=== PATIENT | female | born 1970 | race Caucasian/White ===

== ENCOUNTER 2019-07-22 08:04 | Outpatient (CLI) | payer OTHER, MEDICARE, SELFPAY ==
[2019-07-22 08:22] LABS: Hematocrit 42.2 % (35.0-49.0); Hemoglobin 14.3 g/dL (12.0-15.0); Mean Corpuscular HGB Conc 33.9 g/dL (32.0-36.0); Mean Corpuscular Hemoglobin 30.5 pg (27.0-31.0); Mean Platelet Volume 9.8 fl (9.2-11.8); Platelet Count Result 344 K/mm3 (150-420); Red Blood Count 4.69 M/mm3 (4.20-5.40); Red Cell Distribution Width 12.5 % (11.6-14.4); White Blood Count 7.3 K/mm3 (4.8-10.8)
[2019-07-22 08:49] LABS: Hemoglobin A1C 6.6 % (<5.7)
[2019-07-22 09:21] LABS: Alanine Aminotransferase 25 U/L (14-59); Albumin Level 3.7 g/dL (3.4-5.0); Alkaline Phosphatase 87 U/L (46-116); Anion Gap 13.2 mmol/L (7-16); Aspartate Amino Transferase 15 U/L (15-37); Bilirubin,Total 0.2 mg/dL (0.00-1.00); Blood Urea Nitrogen 17 mg/dL (7-18); Calcium 9.2 mg/dL (8.5-10.1); Carbon Dioxide 31 mmol/L (21-32); Chloride 100 mmol/L (98-108); Cholesterol 269 mg/dL (0-200); Estimated Glomerular Filt Rate 60; Glucose 91 mg/dL (70-99); HDL Direct 49 mg/dL (40-60); LDL Cholesterol Calculated 189 mg/dL (<130); Osmolality Calculated 291 mOsm/kg (285-295); Potassium 4.2 mmol/L (3.5-5.1); Sodium 140 mmol/L (136-145); Triglycerides 156 mg/dL (0-150)
[2019-07-24 20:47] LABS: H pylori, Urea Breath NOT DETECTED (NOT DETECTED)
== END 2019-07-22 08:05 | disposition home or self-care (01) ==
PROVIDERS: PCP Family Medicine; Visit Provider Family Medicine
DX: J45.909 Unspecified asthma, uncomplicated (principal); I10 Essential (primary) hypertension; E11.9 Type 2 diabetes mellitus without complications; E78.5 Hyperlipidemia, unspecified; K21.9 Gastro-esophageal reflux disease without esophagitis
CPT/HCPCS: 36415; 80053; 80061; 83013; 83036; 85027

== ENCOUNTER 2020-12-20 13:42 | Outpatient (CLI) | payer OTHER, MEDICARE, SELFPAY ==
--- NOTE | ~2020-12-20 | US_ITS ---
EXAMINATION: US arterial ankle brachial ind DATE: 12/20/2020 14:29 INDICATION: Peripheral vascular disease. Diabetes. Hyperlipidemia. Hypertension. Smoker. TECHNIQUE: Segmental pressures and plethysmographic and Doppler waveforms of the brachial and lower e xtremity arteries were obtained. COMPARISON: None. FINDINGS: Right and left brachial artery pressures of 84 mm Hg and 89 mm Hg, respectively, are concordant (norm al difference <= 30 mmHg). The right ankle-brachial index (LEXY) is 1.20 (normal >= 0.9-1.0). The right great toe-brachial index (TBI) is 0.73 (normal >= 0.65). Arterial Doppler waveforms are triphasic. The left LEXY is 1.11. The left TBI is 0.83. Arterial Doppler waveforms are triphasic. IMPRESSION: Normal examination Reviewed, dictated and finalized at Location A. Reviewed, dictated and finalized at location B. IMPRESSION: Normal examination
--- NOTE | ~2020-12-20 | MM_ITS ---
EXAMINATION: MM screening doc BI w dave HISTORY: Screening TECHNIQUE: Craniocaudal and mediolateral oblique 3-D tomosynthesis images were obtained and synthetic 2-D images were generated. CAD analysis was submitted and interpreted. COMPARISON: 01/13/2013 BREAST PARENCHYMAL COMPOSITION: There are scattered areas of fibroglandular density. FINDINGS: There is no evidence of suspicious mass, calcification, or architectural distortion to sugg est malignancy in either breast. There has been no suspicious interval change. IMPRESSION: 1. No mammographic evidence of malignancy. 2. Recommend routine screening mammography in one year. BI-RADS Category 1: Negative Reviewed, dictated and finalized at location A.
[2020-12-20 14:49] LABS: Hematocrit 31.5 % (35.0-49.0); Hemoglobin 10.3 g/dL (12.0-15.0); Mean Corpuscular HGB Conc 32.7 g/dL (32.0-36.0); Mean Corpuscular Hemoglobin 29.6 pg (27.0-31.0); Mean Corpuscular Volume 90.5 fL (78.0-102.0); Mean Platelet Volume 9.6 fl (9.2-11.8); Platelet Count Result 392 K/mm3 (150-420); Red Blood Count 3.48 M/mm3 (4.20-5.40); Red Cell Distribution Width 13.2 % (11.6-14.4); White Blood Count 9.8 K/mm3 (4.8-10.8)
[2020-12-20 15:42] LABS: Alanine Aminotransferase 28 U/L (14-59); Albumin Level 3.7 g/dL (3.4-5.0); Alkaline Phosphatase 88 U/L (46-116); Anion Gap 11 mmol/L (8-16); Aspartate Amino Transferase 12 U/L (15-37); Bilirubin,Total 0.1 mg/dL (0.00-1.00); Blood Urea Nitrogen 24 mg/dL (7-18); Calcium 8.8 mg/dL (8.5-10.1); Carbon Dioxide 29 mmol/L (21-32); Chloride 101 mmol/L (98-108); Cholesterol 161 mg/dL (0-200); Estimated Glomerular Filt Rate 44; Glucose 97 mg/dL (70-99); HDL Direct 47 mg/dL (40-60); LDL Cholesterol Calculated 87 mg/dL (<130); Osmolality Calculated 296 mOsm/kg (285-295); Potassium 4.1 mmol/L (3.5-5.1); Sodium 141 mmol/L (136-145); Total Protein 6.6 g/dL (6.4-8.2); Triglycerides 137 mg/dL (0-150)
== END 2020-12-20 13:43 | disposition home or self-care (01) ==
LOC: CHSIMG 13:50
PROVIDERS: PCP Family Medicine; Visit Provider Family Medicine
DX: I73.9 Peripheral vascular disease, unspecified (principal); Z12.31 Encounter for screening mammogram for malignant neoplasm of breast; I10 Essential (primary) hypertension; E78.5 Hyperlipidemia, unspecified; Z00.00 Encounter for general adult medical examination without abnormal findings
CPT/HCPCS: 36415; 77063; 77067; 80053; 80061; 85027; 93922

== ENCOUNTER 2021-01-07 08:50 | Outpatient (CLI) | payer OTHER, MEDICARE, SELFPAY ==
--- NOTE | ~2021-01-07 | MR_ITS ---
EXAMINATION: MR lumbar spine wo [facility] EXAM DATE: 01/07/2021 09:29 INDICATION: Low back pain into left hip. Numbness and tingling. TECHNIQUE: Multi-sequential, multiplanar MR images of the lumbar spine were obtained without contrast . Sagittal T1, T2, T2 fat saturation images. Axial T2 weighted images. Comparison is made to prior examination from 08/23/2015. FINDINGS: Mild to moderate disc disease at L4-5 with 4 mm anterolisthesis. There is moderate disc dis ease L5-S1. The vertebral bodies are otherwise aligned. The conus medullaris terminates at the L1 lev el and has normal signal intensity and morphology. There are no suspicious marrow signal abnormalitie s. Paraspinal soft tissue is unremarkable. Small Tarlov cyst. Level by level evaluation: T12-L1: Disc does not extend beyond the endplate margin. Facet arthropathy: Mild. Neural foraminal stenosis: No stenosis. Central canal stenosis: No stenosis. L1-L2: Disc does not extend beyond the endplate margin. Facet arthropathy: Mild. Neural foraminal stenosis: No stenosis. Central canal stenosis: No stenosis. L2-L3: Disc does not extend beyond the endplate margin. Facet arthropathy: Mild to moderate. Neural foraminal stenosis: No stenosis. Central canal stenosis: No stenosis. L3-L4: Disc does not extend beyond the endplate margin. Facet arthropathy: Mild to moderate. Neural foraminal stenosis: No stenosis. Central canal stenosis: No stenosis. L4-L5: There is a mild diffuse disc bulge. Facet arthropathy: Moderate to severe right greater than left. Neural foraminal stenosis: Mild bilateral. Central canal stenosis: Mild. L5-S1: There is a mild diffuse disc bulge. Facet arthropathy: Mild to moderate. Neural foraminal stenosis: Moderate left, mild to moderate right. Central canal stenosis: Mild. The L4-5 grade 1 anterolisthesis and disc disease has developed compared to prior study. Spondylosis at L5-S1 appears essentially unchanged. IMPRESSION: 1. L4-5 grade 1 anterolisthesis, moderate to severe facet arthropathy. 2. Otherwise mild to moderate lumbar spondylosis. 3. Left L5-S1 neural foramina most narrowed on exam. Reviewed, dictated and finalized at location A.
== END 2021-01-07 08:51 | disposition home or self-care (01) ==
LOC: CHSIMG 08:51
PROVIDERS: PCP Family Medicine; Visit Provider Family Medicine
DX: M54.50 Low back pain, unspecified (principal); I73.9 Peripheral vascular disease, unspecified; G95.19 Other vascular myelopathies
CPT/HCPCS: 72148

== ENCOUNTER 2021-02-21 16:04 | Outpatient (RCR) | payer OTHER, MEDICARE, SELFPAY ==
--- NOTE | 2021-02-21 16:45 | PTOPEVAL ---
Thank you for referring Kinza Zaman to [facility].? The patient is scheduled to be seen for therapy? __2__x/week for 12 visits. Please review, sign, date and return this plan of care CARLOS ALBERTO. I agree with and certify that the following plan of care is medically necessary. Referring Physician Date Admitting Provider: Attending Provider: GIOVANNA HARTMAN Referring Provider: *PT Outpatient Evaluation Start: 02/21/21 16:07 Freq: Status: Active Protocol: Document 02/21/21 16:10 TCIO (Rec: 02/21/21 16:43 TICO [id number]) Therapy Assessment Status Assessment Status Assessment Status Evaluation Evaluation Information Problem Diagnosis lumbar foraminal stenosis Onset 01/25/21 Subjective Information Pt. reports she has had low Query Text:As Reported By Patient/ back pain for a long time. Family She has noticed recently that her pain is more intense and her legs aer starting to seize up multiple times a day. She reports that she has not fallen. She states that she takes medication at night to sleep. She reports she is undergoing a nerve conduction test on . She reports having a MRI scan of her back done in December. She reports that her goal for therapy is to have her legs stop seizing. Diagnostic Tests X-Rays For This Problem Yes MRI For This Problem Yes Prior Level of Function Activity Level (Last 3 Months) Occupation health health care coordinator Hand Dominance Left Activity of Daily Living Ability Independent Indoor/Home Mobility Independent Community Mobility Independent Stairs Ability Independent Functional Cognition (Planning, Shopping Independent , Taking Medications) Cooking Yes Cleaning Yes Laundry Yes Shopping Yes Driving Yes Pain Assessment Timing of Pain Assessment Timing of Pain Assessment Pre-Treatment Pain Scale Pain Scale Used Numeric (1 - 10) Self Report Pain Assessment Lower Back Reported Pain Level 8 Pain Description Aching Pain Frequency Chronic,Continuous Lowest Pain Intensity 3 Greatest Pain Intensity 10 Pain Aggravating Factors Prolonged Position,Si
== END 2021-04-11 16:21 | disposition home or self-care (01) ==
LOC: CHSPT 16:04
PROVIDERS: PCP Family Medicine
DX: M25.511 Pain in right shoulder (principal); M48.061 Spinal stenosis, lumbar region without neurogenic claudication
CPT/HCPCS: 97014; 97110; 97140; 97161; G0283

== ENCOUNTER 2022-09-05 15:37 | Outpatient (CLI) | payer OTHER, MEDICARE, SELFPAY ==
[2022-09-05 15:59] LABS: Basophils Absolute Auto 0.03 K/mm3 (0.00-0.10); Basophils Percent Auto 0.4 % (0.0-1.0); Eosinophils Absolute Auto 0.23 K/mm3 (0.02-0.50); Eosinophils Percent Auto 2.9 % (1.0-6.0); Immature Granulocyte Absolute 0.03 K/mm3 (0.00-0.00); Immature Granulocyte Percent A 0.4 % (0.0-0.0); Lymphocytes Absolute Auto 2.29 K/mm3 (1.10-4.50); Lymphocytes Percent Auto 29.3 % (18.0-42.0); Mean Corpuscular HGB Conc 25.7 g/dL (32.0-36.0); Mean Corpuscular Hemoglobin 16.5 pg (27.0-31.0); Mean Corpuscular Volume 64.1 fL (78.0-102.0); Mean Platelet Volume 9.5 fl (9.2-11.8); Monocytes Absolute Auto 0.57 K/mm3 (0.10-0.90); Monocytes Percent Auto 7.3 % (2.0-11.0); Neutrophils Absolute Auto 4.7 K/mm3 (1.7-7.2); Neutrophils Percent Auto 59.7 % (50.0-70.0); Platelet Count Result 436 K/mm3 (150-420); Red Blood Count 2.31 M/mm3 (4.20-5.40); Red Cell Distribution Width 21.4 % (11.6-14.4); White Blood Count 7.8 K/mm3 (4.8-10.8)
[2022-09-05 16:03] LABS: Hematocrit 14.8 % (35.0-49.0); Hemoglobin 3.8 g/dL (12.0-15.0)
[2022-09-05 16:22] LABS: Alanine Aminotransferase 22 U/L (14-59); Albumin Level 3.6 g/dL (3.4-5.0); Alkaline Phosphatase 83 U/L (46-116); Anion Gap 8 mmol/L (8-16); Aspartate Amino Transferase 12 U/L (15-37); Bilirubin,Total 0.1 mg/dL (0.00-1.00); Blood Urea Nitrogen 33 mg/dL (7-18); Calcium 8.9 mg/dL (8.5-10.1); Carbon Dioxide 29 mmol/L (21-32); Chloride 100 mmol/L (98-108); Cholesterol 113 mg/dL (0-200); Estimated Glomerular Filt Rate 29; Glucose 125 mg/dL (70-99); HDL Direct 48 mg/dL (40-60); Iron 6 ug/dL (50-170); LDL Cholesterol Calculated 48 mg/dL (<130); Magnesium 1.9 mg/dL (1.8-2.4); Osmolality Calculated 292 mOsm/kg (285-295); Potassium 4.2 mmol/L (3.5-5.1); Sodium 137 mmol/L (136-145); Total Protein 6.9 g/dL (6.4-8.2); Triglycerides 87 mg/dL (0-150)
[2022-09-05 16:23] LABS: Appearance Urine Clear (Clear); Bilirubin Urine Negative (Negative); Blood Urine Negative (Negative); Color Urine Light Yellow (Yellow); Glucose Urine UA Negative (Negative); Ketones Urine Negative (Negative); Leukocyte Esterase Ur Negative LEU/UL (Negative); Nitrate Urine Negative (Negative); Protein Urine Negative (Negative); Specific Grav Ur <= 1.005 (1.010-1.020); Urobilinogen Urine 0.2 mg/dL (0.2-1.0)
[2022-09-05 16:33] LABS: Hemoglobin A1C < 4.7 % (<5.7)
[2022-09-05 16:38] LABS: Add Urine Microscopic? NO
[2022-09-09 06:43] LABS: Vitamin D 25 Hydroxy 59 ng/mL (30-100)
== END 2022-09-05 15:38 | disposition home or self-care (01) ==
LOC: CHSLAB 15:40
PROVIDERS: PCP Nurse Practitioner Family; Visit Provider Nurse Practitioner Family
DX: E11.9 Type 2 diabetes mellitus without complications (principal); R42 Dizziness and giddiness; E78.5 Hyperlipidemia, unspecified; I10 Essential (primary) hypertension; Z79.899 Other long term (current) drug therapy; Z87.898 Personal history of other specified conditions
CPT/HCPCS: 36415; 80053; 80061; 81003; 82306; 83036; 83540; 83735; 85025

== ENCOUNTER 2022-09-05 16:13 | Observation (INO) | payer OTHER, MEDICARE, SELFPAY ==
[2022-09-05] VITALS (9 sets, daily range): BP systolic 102–113; BP diastolic 44–65; PULSE 76–103; RESP 16–20; TEMP 35.9–36.8; O2SAT 94–100; BMI 32.3
--- NOTE | ~2022-09-05 | XR_ITS ---
EXAMINATION: XR chest 1V portable Exam Date/Time: 09/05/2022 18:03 CDT HISTORY: sob ON EXERTION/anemia Comparison: 03/03/2015. RESULT: Lines, tubes, and devices: None. Lungs and pleura: Clear. Cardiomediastinal silhouette: Stable. Small hiatal hernia. Other: No acute osseous or upper abdominal finding. IMPRESSION: No acute cardiopulmonary process. Reviewed, dictated and finalized at location K.
[2022-09-05 16:48] LABS: Basophils Absolute Auto 0.02 K/mm3 (0.00-0.10); Basophils Percent Auto 0.3 % (0.0-1.0); Eosinophils Absolute Auto 0.19 K/mm3 (0.02-0.50); Eosinophils Percent Auto 2.6 % (1.0-6.0); Immature Granulocyte Absolute 0.02 K/mm3 (0.00-0.00); Immature Granulocyte Percent A 0.3 % (0.0-0.0); Lymphocytes Absolute Auto 2.23 K/mm3 (1.10-4.50); Lymphocytes Percent Auto 30.7 % (18.0-42.0); Mean Corpuscular HGB Conc 26.2 g/dL (32.0-36.0); Mean Corpuscular Volume 64.7 fL (78.0-102.0); Mean Platelet Volume 9.9 fl (9.2-11.8); Monocytes Absolute Auto 0.52 K/mm3 (0.10-0.90); Monocytes Percent Auto 7.2 % (2.0-11.0); Neutrophils Absolute Auto 4.3 K/mm3 (1.7-7.2); Neutrophils Percent Auto 58.9 % (50.0-70.0); Platelet Count Result 175 K/mm3 (150-420); Red Blood Count 2.24 M/mm3 (4.20-5.40); Red Cell Distribution Width 21.2 % (11.6-14.4); White Blood Count 7.3 K/mm3 (4.8-10.8)
[2022-09-05 16:53] LABS: Hematocrit 14.5 % (35.0-49.0); Hemoglobin 3.8 g/dL (12.0-15.0)
[2022-09-05 17:02] LABS: INR 0.9
[2022-09-05 17:03] LABS: Partial Thromboplastin Time > 20.0 SEC (23.90-30.70)
[2022-09-05 17:05] LABS: Alanine Aminotransferase 11 U/L (14-59); Albumin Level 3.5 g/dL (3.4-5.0); Alkaline Phosphatase 75 U/L (46-116); Anion Gap 9 mmol/L (8-16); Aspartate Amino Transferase 21 U/L (15-37); Blood Urea Nitrogen 33 mg/dL (7-18); Calcium 8.8 mg/dL (8.5-10.1); Carbon Dioxide 27 mmol/L (21-32); Chloride 101 mmol/L (98-108); Estimated CRCL calculation 37 ml/min; Estimated Glomerular Filt Rate 30; Glucose 97 mg/dL (70-99); Osmolality Calculated 291 mOsm/kg (285-295); Potassium 4.1 mmol/L (3.5-5.1); Sodium 137 mmol/L (136-145); Total Protein 7.1 g/dL (6.4-8.2)
--- NOTE | 2022-09-05 17:10 | ECG_ITS ---
Measurements Intervals [place] Rate: 78 P: 53 CT: 155 QRS: 43 QRSD: 85 T: 40 QT: 355 QTc: 405 Interpretive Statements SINUS RHYTHM NORMAL ELECTROCARDIOGRAM NO PREVIOUS ECG AVAILABLE FOR COMPARISON Electronically Signed On 09-07-2022 17:28:08 CDT by Kaveh Dodd M.D.
--- NOTE | 2022-09-05 17:11 | ED.GENADULT ---
HPI - General Adult General Chief complaint: Recheck/Abnormal Lab/Rx Stated complaint: low hemoglobin Time Seen by Provider: 09/05/22 17:11 Source: patient Mode of arrival: ambulatory Limitations: no limitations History of Present Illness HPI narrative: patient is here from an outpatient clinic due to dizziness. Patient was having some blood work done as an outpatient and was found to have a hemoglobin in the level of 3. Patient was sent to the emergency room for further evaluation. Patient has not been feeling well for the past 3 weeks. No prior bleeding from any site or recent injury. She does have a history of anemia but not blood transfusions. No pain. Related Data Home Medications Medication Instructions Recorded Confirmed brimonidine 0.1 % eye drops 1 drop ophthalmic (eye) Q8H 07/20/19 09/05/22 (Alphagan P) trazodone 50 mg tablet 100 mg PO HS PRN Insomnia 07/20/19 09/05/22 albuterol sulfate 90 mcg/actuation 1 inh inhalation Q4H 09/05/22 09/05/22 aerosol inhaler atorvastatin 40 mg tablet 40 mg PO DAILY 09/05/22 09/05/22 ibuprofen 800 mg tablet 800 mg PO TID 09/05/22 09/05/22 lisinopril 20 1 tablet PO DAILY 09/05/22 09/05/22 mg-hydrochlorothiazide 25 mg tablet metformin 500 mg tablet 500 mg PO BID 09/05/22 09/05/22 omeprazole 40 mg capsule,delayed 40 mg PO DAILY 09/05/22 09/05/22 release venlafaxine 150 mg 150 mg PO DAILY 09/05/22 09/05/22 capsule,extended release 24 hr zafirlukast 20 mg tablet 20 mg PO BID 09/05/22 09/05/22 Allergies Allergy/AdvReac Type Severity Reaction Status Date / Time ranitidine Allergy Severe LIPS SWELL Verified 09/05/22 16:23 Penicillins Allergy Unknown Unknown Verified 09/05/22 16:23 bupropion [From Wellbutrin] Allergy Hives Verified 09/05/22 16:23 Review of Systems Review of Systems: Dizziness and otherwise 10 point review of systems is negative. PMFSH Past Medical History Medical History (Updated 09/05/22 @ 18:31 by Elmer Jeffery MD) Asthma Cigarette nicotine dependence COPD (chronic obstructive pulmonary disease) Depression DM2 (diabetes mellitus, type 2) NADINE (generalized anxiety disorder) GERD (gastroesophageal reflux disease) Hyperlipidemia Hypertension Overweight Surgical History Surgical History History of cholecystectomy 1993 History of hysterectomy 2007 Family History Family History Other Diabetes mellitus Family history of arthritis Family history of cardiovascular disease Hypertension Social History Social History Smoking packs per day: 1 Smoking cigarettes per day: 20.0 Years smoked: 40 Smoking pack-years: 40.00 Smoking status: Current every day smoker Tobacco type: cigarettes Alcohol intake: current Lack of Transportation: No Lack of Food: Never True Current Housing: I Have Housing Concerned About Future Housing: No Difficulty Paying Gas/Electric Bills: No Difficulty Paying for Meds: No Currently Unemployed: No Education: High School Diploma/GED Difficulty w/ Childcare or Family Care: No Living arrangements: with family Additional living arrangements comments: Lives with her boyfriend. 2 Children. Occupation/Education: unemployed Exam Const: General: healthy appearing Other: pale HENMT: Head: normal to inspection Eyes: Other: pale conjunctiva bilaterally Chest: Chest palpation & inspection: normal inspection of the chest Resp: Effort & Inspection: normal respiratory effort Cardio: Rate: regular rate Rhythm: regular rhythm GI: Inspection: non-distended GI Palp: Yes Soft to palpation Auscultation: normal bowel sounds Rectal Exam: normal sphincter tone, No Abnormal stool present and No hemorrhoids : General: Yes bladder normal to palpation Back/Spine/Pelvis: Back: no CVA tendern
[2022-09-05 17:16] LABS: Occult Blood Negative (Negative)
[2022-09-05 17:23] LABS: Bilirubin,Total 0.1 mg/dL (0.00-1.00)
[2022-09-05] MEDS: SODIUM CHLORIDE 0.9% IV 500 ML 30 ML (17:49)
--- NOTE | 2022-09-05 19:21 | PC.NURSE ---
1900 2nd iv started 20g to left FA blood switched to this site
--- NOTE | 2022-09-05 19:30 | PC.NURSE ---
Patient admitted to room 208B from ED. Ambulated from stretcher to bed independently with steady gait. A&Ox4. Resp even and unlabored. Blood transfusion continues from ED to IV site in LFA without difficulty. Denies pain and SOB. Call light in reach. No distress noted.
[2022-09-05 19:57] LABS: Ferritin 2 ng/mL (8-252); Iron 6 ug/dL (50-170); Percent Iron Saturation 1 % (12-57); Vitamin B12 554 pg/mL (193-986)
[2022-09-05 20:05] LABS: Folic Acid > 20.0 ng/mL (8.6->20)
--- NOTE | 2022-09-05 20:18 | ADMGEN ---
This patient, Kinza Zaman, was admitted to 2nd Floor Room 208-1. Patient/family oriented to hospital policies and general routines including ID bracelet, bed and alarms, visiting hours, pain management, procedures, bathroom and other care routines, personal items, smoking policy, room service/diet, and visiting hours. Information on how to activate the Rapid Response Team has been discussed. Patient/Family are encouraged to report perceived risks to care and to ask questions if they do not understand what they are told or what they should do.
--- NOTE | 2022-09-05 20:20 | PC.NURSE ---
1st blood transfusion ended. Patient tolerated well. No distress noted. Call light in reach.
[2022-09-05] MEDS: ALBUTEROL SULFATE (*SP) INHALER 1 PUFF INHALATION (21:08)
[2022-09-05] MEDS: BRIMONIDINE TARTRATE 0.1% 5 ML OPHTH DROPS 1 DROP EACH EYE (21:08)
[2022-09-05 22:16] LABS: Glucose Point of Care 99 mg/dl (65-105)
--- NOTE | 2022-09-05 22:50 | PC.NURSE ---
2nd blood transfusion started to IV in LFA. Flushes with ease. Patient denies pain/complaints/needs @ this time. No distress noted. Call light in reach.
[2022-09-06] VITALS (17 sets, daily range): BP systolic 102–120; BP diastolic 54–66; PULSE 58–82; RESP 16–18; TEMP 35.8–36.6; O2SAT 94–97
--- NOTE | 2022-09-06 00:50 | PC.NURSE ---
2nd blood transfusion finished infusing. NS infusing @ 30ml/hr as ordered. Patient tolerated transfusion well. Patient sleeping @ this time. No distress noted. Call light in reach.
[2022-09-06 05:12] LABS: Basophils Absolute Auto 0.04 K/mm3 (0.00-0.10); Basophils Percent Auto 0.6 % (0.0-1.0); Eosinophils Absolute Auto 0.22 K/mm3 (0.02-0.50); Immature Granulocyte Absolute 0.02 K/mm3 (0.00-0.00); Immature Granulocyte Percent A 0.3 % (0.0-0.0); Lymphocytes Percent Auto 24.8 % (18.0-42.0); Mean Corpuscular HGB Conc 28.6 g/dL (32.0-36.0); Mean Corpuscular Hemoglobin 20.2 pg (27.0-31.0); Mean Corpuscular Volume 70.5 fL (78.0-102.0); Mean Platelet Volume 8.8 fl (9.2-11.8); Monocytes Absolute Auto 0.54 K/mm3 (0.10-0.90); Monocytes Percent Auto 7.4 % (2.0-11.0); Neutrophils Absolute Auto 4.7 K/mm3 (1.7-7.2); Neutrophils Percent Auto 63.9 % (50.0-70.0); Nucleated Red Blood Cells Absolute Auto 0.02 K/mm3 (0.00-0.00); Nucleated Red Blood Cells Perc 0.3 % (0-0.0); Platelet Count Result 331 K/mm3 (150-420); Red Blood Count 3.12 M/mm3 (4.20-5.40); Red Cell Distribution Width 23.7 % (11.6-14.4); White Blood Count 7.3 K/mm3 (4.8-10.8)
[2022-09-06 05:15] LABS: Hemoglobin 6.3 g/dL (12.0-15.0)
[2022-09-06 05:27] LABS: Alanine Aminotransferase 20 U/L (14-59); Albumin Level 3.2 g/dL (3.4-5.0); Alkaline Phosphatase 74 U/L (46-116); Anion Gap 7 mmol/L (8-16); Aspartate Amino Transferase 16 U/L (15-37); Bilirubin,Total 0.2 mg/dL (0.00-1.00); Blood Urea Nitrogen 24 mg/dL (7-18); Calcium 8.6 mg/dL (8.5-10.1); Carbon Dioxide 29 mmol/L (21-32); Chloride 104 mmol/L (98-108); Estimated CRCL calculation 55 ml/min; Estimated Glomerular Filt Rate 49; Glucose 105 mg/dL (70-99); Magnesium 2.1 mg/dL (1.8-2.4); Osmolality Calculated 294 mOsm/kg (285-295); Potassium 4.3 mmol/L (3.5-5.1); Sodium 140 mmol/L (136-145); Total Protein 6.5 g/dL (6.4-8.2)
--- NOTE | 2022-09-06 05:47 | PC.NURSE ---
Notified Nancy Jara NP of pt's low hgb of 6.3; New orders received to start 3rd unit of blood.
[2022-09-06] MEDS: BRIMONIDINE TARTRATE 0.1% 5 ML OPHTH DROPS 1 DROP EACH EYE ×2 (05:50→21:43)
--- NOTE | 2022-09-06 06:00 | PM.IMHP ---
H&P: HPI History of Present Illness Date/Time: 09/06/22 06:17 Chief Complaint: abnormal labs Narrative: Patient is a 51 year old female with a past medical history of HTN, COPD, DM2 who presented to the ED from urgent care for abnormal labs.Patient stated that she was getting lightheaded and dizzy along with headaches for over a month. She stated that symptoms worsened over the last week or so. She stated that she was so weak that she can hold her head up or keep her eyes open. she stated that she decided to make a doctor's appointment and decided to do blood work as she has not had blood work done in a while. She went to the urgent care to get the blood work done and they called her and told her come back to the hospital as her hemoglobin was low. In the ED hemoglobin was 3.8. She did state that the dizziness was worse whenever she stood or change positions fast. she stated that she has also been having shortness of breath and the more active that she has been them or shortness of breath she would also has be. She does have a cough however she stated that she does smoke but her cough has no significant changes and she denies any sputum changes or consistency. She did state that she is doing a lot ice lately. She stated that that has been more recent and that she cannot help it she has to have the ice. She stated she eats about 2-3 large cups of ice today. She also stated that she was on iron pills at 1 time however she stated that it leaves of bad metallic taste in her mouth that she was unable to tolerate it. She denies any bloody stools, hematemesis, hematuria or any traumatic bleeding. Chest x-ray was performed in the ED and showed no acute cardiopulmonary abnormality. Patient was given 1 unit of blood in the ED and has received 3 total since admission. Hemoglobin hematocrit this morning was 6.3/22.0. Dizziness has resolved. Patient denies any further symptomatology and has been able to get around the room well. She does have a family history of anemia as her mom also had PICA. Currently she denies any chest pain, nausea, vomiting, diarrhea, constipation, abdominal pain, urgency /frequency/ pain /burning with urination, urinary retention. Patient is being admitted to the hospitalist service under observation Review of Systems Review of Systems: 12 systems reviewed and are negative unless noted in the HPI All systems reviewed & are unremarkable except as noted in HPI and below PMFSH Past Medical History Medical History (Updated 09/06/22 @ 07:28 by NICK Jolly) Anemia Cigarette nicotine dependence Claudication COPD (chronic obstructive pulmonary disease) Depression DM2 (diabetes mellitus, type 2) NADINE (generalized anxiety disorder) GERD (gastroesophageal reflux disease) Healthcare maintenance Hyperlipidemia Hypertension Neurogenic claudication Overweight Surgical History Surgical History History of cholecystectomy 1992 History of hysterectomy 2006 Family History Family History (Updated 09/06/22 @ 07:10 by NICK Jolly) Mother Diabetes mellitus Family history of arthritis Acute myocardial infarction Heart disease Hypertension Congestive heart failure CAD (coronary artery disease) Father Diabetes mellitus Cerebrovascular accident Family history of arthritis Other Family history of cardiovascular disease Social History Social History (Updated 09/06/22 @ 07:11 by NICK Jolly) Social History: patient lives with her boyfriend Jovanny who will be her surrogate if she is unable to make her own decisions. Patient does have 2 kids and she also stated that she wishes to be a full code at this time. Smoking packs per day: 1 Smoking cigarettes per day: 20.0 Years smoked: 35 Smoking pack-years: 35.00 Smoking status: Current every day smoker Tobacco type: cigarettes Second hand tobacco smoke exposure: Ye
[2022-09-06] MEDS: ATORVASTATIN 40 MG TABLET PO (08:33)
[2022-09-06] MEDS: FERROUS SULFATE 324 MG TABLET PO ×2 (08:33→16:43)
[2022-09-06] MEDS: VENLAFAXINE HCL XR 75 MG CAP.ER.24H 150 MG PO (08:33)
[2022-09-06] MEDS: PANTOPRAZOLE 40 MG TABLET PO ×2 (08:34→20:23)
[2022-09-06] MEDS: FUROSEMIDE INJ 40 MG/4 ML VIAL IV PUSH (08:34)
[2022-09-06] MEDS: SODIUM CHLORIDE 0.9% IV 250 ML 30 ML (08:40)
[2022-09-06] MEDS: IRON SUCROSE COMPLEX 500 MG in SODIUM CHLORIDE 0.9% IV 250 ML 78.57 MG IVPB (09:21)
--- NOTE | 2022-09-06 11:22 | PC.NURSE ---
0715 blood starts @100ml/hr. tolerates well. 0735 blood titrates up to 125ml/hr. tolerates well. 0800 blood titrates up to 150ml/hr. tolerates well. 0950 blood done and ns runs to clear tubing.
[2022-09-06 11:35] LABS: Glucose Point of Care 102 mg/dl (65-105)
[2022-09-06 11:39] LABS: Glucose Point of Care 106 mg/dl (65-105)
--- NOTE | 2022-09-06 13:31 | PC.NURSE ---
1030 blood started @ 100ml/hr. 1040 blood titrated to 125ml/hr. tolerating well. 1115 blood up to 150ml/hr. tolerating well. 1300 blood finished. ns clearing tubing.
--- NOTE | 2022-09-06 13:44 | PC.NURSE ---
patient c/o of swelling in caty feet/ hands and general all feeling. claims she feels like she could burst. c/o general all over aches does not like ordered meds. request motrin. 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 hands and feet look swollen. caty pedal edema1-2+
[2022-09-06 14:16] LABS: Hematocrit 38.9 % (35.0-49.0)
[2022-09-06] MEDS: IBUPROFEN 400 MG TABLET 800 MG PO (14:21)
[2022-09-06 16:53] LABS: Glucose Point of Care 177 mg/dl (65-105)
[2022-09-06] MEDS: traZODone HCL 50 MG TABLET 100 MG PO (20:23)
[2022-09-06 20:29] LABS: Glucose Point of Care 94 mg/dl (65-105)
[2022-09-07] VITALS: BP 99/57; PULSE 68; PULSE 71; RESP 16; TEMP 36; O2SAT 93
[2022-09-07 04:00] VITALS: PULSE 68
[2022-09-07 05:24] LABS: Hematocrit 33.6 % (35.0-49.0); Hemoglobin 10.4 g/dL (12.0-15.0); Mean Corpuscular Hemoglobin 22.8 pg (27.0-31.0); Mean Corpuscular Volume 73.5 fL (78.0-102.0); Platelet Count Result 365 K/mm3 (150-420); Red Blood Count 4.57 M/mm3 (4.20-5.40); Red Cell Distribution Width 23.1 % (11.6-14.4); White Blood Count 10.9 K/mm3 (4.8-10.8)
[2022-09-07 05:41] LABS: Alanine Aminotransferase 22 U/L (14-59); Albumin Level 3.2 g/dL (3.4-5.0); Alkaline Phosphatase 93 U/L (46-116); Anion Gap 8 mmol/L (8-16); Aspartate Amino Transferase 15 U/L (15-37); Bilirubin,Total 0.2 mg/dL (0.00-1.00); Blood Urea Nitrogen 17 mg/dL (7-18); Calcium 8.8 mg/dL (8.5-10.1); Carbon Dioxide 30 mmol/L (21-32); Chloride 105 mmol/L (98-108); Estimated CRCL calculation 64 ml/min; Estimated Glomerular Filt Rate 59; Glucose 111 mg/dL (70-99); Osmolality Calculated 298 mOsm/kg (285-295); Potassium 3.9 mmol/L (3.5-5.1); Sodium 143 mmol/L (136-145); Total Protein 6.8 g/dL (6.4-8.2)
[2022-09-07] MEDS: BRIMONIDINE TARTRATE 0.1% 5 ML OPHTH DROPS 1 DROP EACH EYE (05:58)
[2022-09-07 08:00] VITALS: BP 124/72; PULSE 74; RESP 16; TEMP 36.6; O2SAT 96
[2022-09-07 08:15] LABS: Glucose Point of Care 108 mg/dl (65-105)
[2022-09-07] MEDS: ATORVASTATIN 40 MG TABLET PO (08:35)
[2022-09-07] MEDS: PANTOPRAZOLE 40 MG TABLET PO (08:35)
[2022-09-07] MEDS: VENLAFAXINE HCL XR 75 MG CAP.ER.24H 150 MG PO (08:35)
[2022-09-07] MEDS: FERROUS SULFATE 324 MG TABLET PO (08:36)
--- NOTE | 2022-09-07 09:01 | PM.DS ---
DS: Admitting Diagnosis Discharge Date 1970 Admitting Diagnosis anemia DS: Discharge Diagnosis Discharge Diagnosis Plan anemia DS: Summary Hospital Course Reason for hospitalization: anemia, hypotension, tachycardia, acute kidney injury Hospital Course: this is a 52-year-old female presented to the emergency room with abnormal labs of a hemoglobin of 3.8 patient was having some dizziness inability to eat and was eating ice. Patient is normally on iron but has not been able to take consist in the the metallic taste in her mouth patient's guaiac was negative patient received 4 units of blood and current hemoglobin is 10.7. Patient denies any nausea vomiting and/or diarrhea very anxious to go home as today is her birthday. Patient currently denies any dizziness. Physics plane in great detail that patient is going to need a GI consult which she needs follow-up with a stewarding supervisor or a GI doctor patient states that she is aware and she artery has an appointment that is already set up for next week as she knew that anemia was getting worse. Patient also is being seen and followed by Dr. Atilio lopez and states she will take her iron pills. Another iron study has been sent off on her patient continues to deny any blood noted in her urine no coughing up blood and no excessive menstruation currently vitals and labs are stable blood pressure is 124/72, pulse is 74, respirations 16, temp is 97.8?, O2 sats 96% on room air, potassium is 4.6, sodium 139, BUN 20, creatinine 0.95, glucose 102, RBCs 4.24, WBC 7.7, hemoglobin is 10.7, hemoccult is 34.4%, platelets is 390 no signs and symptoms of bleeding patient is stable for discharge at this time ended continue or keep all her already set up appointments and follow up with Dr. Washington Time Spent with Patient Time attestation: Total time spent providing and/or coordinating discharge services: Exam Narrative: General: well-nourished, well-appearing 51-year-old female, laying in bed, comfortable, NARD Neuro: awake, alert and oriented x4, speech clear, no focal neuro deficits noted HEENMT: normocephalic, atraumatic, EOMI, sclerae anicteric, moist oral mucosa Respiratory: Wheezes and rhonchi to auscultation bilaterally without crackles, nonlabored breathing, dry cough present Cardio: regular rate, regular rhythm with S1-S2 Abdomen: nondistended, normoactive bowel sounds, soft, nontender to palpation Extremities: no edema, erythema, or tenderness to palpation, DP pulses 2+ bilaterally Skin: no rashes or lesions, warm and dry Psych: appropriate mood and affect, judgment and insight intact DS: Data Data Completed and Pending Labs on day of discharge: Labs from last 24 hours 09/07/22 09/07/22 09/06/22 08:13 05:19 20:28 WBC 10.9 H RBC 4.57 Hgb 10.4 L Hct 33.6 L MCV 73.5 L MCH 22.8 L MCHC 31.0 L RDW 23.1 H Plt Count 365 MPV 9.0 L Sodium 143 Potassium 3.9 Chloride 105 Carbon Dioxide 30 Anion Gap 8 BUN 17 Creatinine 0.98 Estim Creat Clear Calc 64 Estimated GFR 59 Glucose 111 H POC Capillary Glucose 108 H 94 Calculated Osmolality 298 H Calcium 8.8 Magnesium 2.0 Total Bilirubin 0.2 AST 15 ALT 22 Alkaline Phosphatase 93 Total Protein 6.8 Albumin 3.2 L Vitamin D 25-Hydroxy Blood Type Antibody Screen Crossmatch 09/06/22 09/06/22 09/06/22 16:47 14:11 11:30 WBC RBC Hgb 12.0 Hct 38.9 MCV MCH MCHC RDW Plt Count MPV Sodium Potassium Chloride Carbon Dioxide Anion Gap BUN Creatinine Estim Creat Clear Calc Estimated GFR Glucose POC Capillary Glucose 177 H 106 H Calculated Osmolality Calcium Magnesium Total Bilirubin AST ALT Alkaline Phosphatase Total Protein Albumin Vitamin D 25-Hydroxy Blood Type Antibody Screen Crossmatch 09/06/22 09/06/22
--- NOTE | 2022-09-07 11:16 | PC.NURSE ---
0959 patient up in room. dressed and ready to go. iv out and drg applied. dc orders went over. verbalizes an understanding. has own auto in parking lot. amb on her own out. denies a wc ride.
[2022-09-09 06:43] LABS: Vitamin D 25 Hydroxy 56 ng/mL (30-100)
[2022-09-10 07:02] LABS: Transferrin 406 mg/dL (188-341)
--- NOTE | 2022-09-17 15:17 | PC.NURSE ---
Pt states she received and understood her discharge instructions. Pt states they were awesome, they finally found the problem and saved my life. I feel 2000 times better now.
== END 2022-09-07 09:55 | disposition home or self-care (01) ==
LOC: CHSED 18:31 → CHS2ND 19:11
PROVIDERS: Nurse Practitioner; Admitting Provider Internal Medicine; Emergency Provider Emergency Medicine; PCP Family Medicine; Visit Provider Internal Medicine
DX: D64.9 Anemia, unspecified (principal); R42 Dizziness and giddiness; N17.9 Acute kidney failure, unspecified; J44.9 Chronic obstructive pulmonary disease, unspecified; E11.9 Type 2 diabetes mellitus without complications; E78.5 Hyperlipidemia, unspecified; K21.9 Gastro-esophageal reflux disease without esophagitis; I10 Essential (primary) hypertension; F41.1 Generalized anxiety disorder; F32.A Depression, unspecified; F17.210 Nicotine dependence, cigarettes, uncomplicated; Z79.899 Other long term (current) drug therapy
CPT/HCPCS: 36415; 36430; 71045; 80053; 82272; 82306; 82607; 82728; 82746; 82948; 83540; 83550; 83735; 84443; 84466; 85014; 85018; 85025; 85027; 85610; 85730; 86850; 86900; 86901; 86920; 93005; 96365; 96366; 96375; 99285; A9270; G0378; J1756; J1940; J7040; J7050; P9016

== ENCOUNTER 2022-09-13 13:33 | Outpatient (CLI) | payer OTHER, MEDICARE, SELFPAY ==
[2022-09-13 13:56] LABS: Basophils Absolute Auto 0.07 K/mm3 (0.00-0.10); Basophils Percent Auto 0.8 % (0.0-1.0); Eosinophils Absolute Auto 0.33 K/mm3 (0.02-0.50); Eosinophils Percent Auto 3.7 % (1.0-6.0); Hematocrit 32.4 % (35.0-49.0); Hemoglobin 9.9 g/dL (12.0-15.0); Immature Granulocyte Absolute 0.04 K/mm3 (0.00-0.00); Immature Granulocyte Percent A 0.4 % (0.0-0.0); Lymphocytes Percent Auto 21.1 % (18.0-42.0); Mean Corpuscular HGB Conc 30.6 g/dL (32.0-36.0); Mean Corpuscular Hemoglobin 24.3 pg (27.0-31.0); Mean Corpuscular Volume 79.6 fL (78.0-102.0); Mean Platelet Volume 9.7 fl (9.2-11.8); Monocytes Percent Auto 8.9 % (2.0-11.0); Neutrophils Absolute Auto 5.9 K/mm3 (1.7-7.2); Neutrophils Percent Auto 65.1 % (50.0-70.0); Platelet Count Result 340 K/mm3 (150-420); Red Blood Count 4.07 M/mm3 (4.20-5.40); Red Cell Distribution Width 28.5 % (11.6-14.4)
[2022-09-13 14:13] LABS: Alanine Aminotransferase 30 U/L (14-59); Albumin Level 3.3 g/dL (3.4-5.0); Alkaline Phosphatase 91 U/L (46-116); Anion Gap 8 mmol/L (8-16); Aspartate Amino Transferase 20 U/L (15-37); Bilirubin,Total 0.1 mg/dL (0.00-1.00); Blood Urea Nitrogen 20 mg/dL (7-18); Calcium 8.8 mg/dL (8.5-10.1); Carbon Dioxide 29 mmol/L (21-32); Chloride 102 mmol/L (98-108); Estimated Glomerular Filt Rate > 60; Glucose 102 mg/dL (70-99); Osmolality Calculated 290 mOsm/kg (285-295); Potassium 4.6 mmol/L (3.5-5.1); Sodium 139 mmol/L (136-145); Total Protein 6.5 g/dL (6.4-8.2)
[2022-09-14 12:04] LABS: Thyroid Stimulating Hormone 1.47 uIU/mL (0.36-3.74)
== END 2022-09-13 13:34 | disposition home or self-care (01) ==
LOC: CHSLAB 13:35
PROVIDERS: PCP Family Medicine; Visit Provider Nurse Practitioner Family
DX: N17.9 Acute kidney failure, unspecified (principal); Z79.899 Other long term (current) drug therapy
CPT/HCPCS: 36415; 80053; 84443; 85025

== ENCOUNTER 2022-09-14 08:00 | Outpatient (CLI) | payer OTHER, MEDICARE, SELFPAY ==
[2022-09-14 08:06] LABS: Occult Blood Negative (Negative)
== END 2022-09-14 08:01 | disposition home or self-care (01) ==
LOC: CHSLAB 08:02
PROVIDERS: PCP Nurse Practitioner Family; Visit Provider Nurse Practitioner Family
DX: D64.9 Anemia, unspecified (principal); N17.9 Acute kidney failure, unspecified
CPT/HCPCS: 82272

== ENCOUNTER 2022-09-20 13:45 | Outpatient (CLI) | payer OTHER, MEDICARE, SELFPAY ==
[2022-09-20 13:59] LABS: Basophils Absolute Auto 0.04 K/mm3 (0.00-0.10); Basophils Percent Auto 0.5 % (0.0-1.0); Eosinophils Absolute Auto 0.18 K/mm3 (0.02-0.50); Eosinophils Percent Auto 2.3 % (1.0-6.0); Hematocrit 34.4 % (35.0-49.0); Hemoglobin 10.7 g/dL (12.0-15.0); Immature Granulocyte Absolute 0.02 K/mm3 (0.00-0.00); Immature Granulocyte Percent A 0.3 % (0.0-0.0); Lymphocytes Absolute Auto 1.99 K/mm3 (1.10-4.50); Lymphocytes Percent Auto 25.7 % (18.0-42.0); Mean Corpuscular HGB Conc 31.1 g/dL (32.0-36.0); Mean Corpuscular Hemoglobin 25.2 pg (27.0-31.0); Mean Corpuscular Volume 81.1 fL (78.0-102.0); Mean Platelet Volume 9.3 fl (9.2-11.8); Monocytes Absolute Auto 0.51 K/mm3 (0.10-0.90); Monocytes Percent Auto 6.6 % (2.0-11.0); Neutrophils Percent Auto 64.6 % (50.0-70.0); Platelet Count Result 390 K/mm3 (150-420); Red Blood Count 4.24 M/mm3 (4.20-5.40); Red Cell Distribution Width 30.9 % (11.6-14.4); White Blood Count 7.7 K/mm3 (4.8-10.8)
[2022-09-20 14:46] LABS: Hemoglobin A1C 5.3 % (<5.7)
== END 2022-09-20 13:46 | disposition home or self-care (01) ==
LOC: CHSLAB 13:47
PROVIDERS: PCP Family Medicine; Visit Provider Family Medicine
DX: E11.9 Type 2 diabetes mellitus without complications (principal); D64.9 Anemia, unspecified
CPT/HCPCS: 36415; 83036; 85025

== ENCOUNTER 2022-10-22 08:26 | Outpatient (CLI) | payer OTHER, MEDICARE, SELFPAY ==
--- NOTE | 2022-10-22 08:31 | ECHO_ITS ---
Patient Info Name: Kinza Zaman Age: 52 years : 1970 Gender: Female Ht: 66 in Wt: 195 lbs BSA: 2.06 m2 HR: 85 bpm BP: 148 / 91 mmHg Heart Rhythm: Sinus Rhythm Technical Quality: Good Exam Date: 10/22/2022 8:24 AM Exam Location: [facility] Patient Status: Outpatient Admit Date: 10/22/2022 Staff Ordering Physician: Adan Washington DO Blow Down Operator: Shahab Castro RDCS Attending Provider: Adan Washington DO Referring Physician: Felix GIBBONS; Exam Type: CA echo doppler color flow Study Info Indications - essential[primarary] hypertension Complete two-dimensional, color flow and Doppler transthoracic echocardiogram is performed. Summary 1. Complete two-dimensional, color flow and Doppler transthoracic echocardiogram is performed. 2. Left ventricular chamber dimension is normal. 3. Left ventricular systolic function is normal, estimated at 60-65%. 4. The left ventricular diastolic function is normal. 5. E/e' 9 is minimally elevated. 6. Left atrial chamber dimension is mildly enlarged. 7. There is trace tricuspid valve regurgitation. 8. No pulmonary hypertension, estimated pulmonary arterial systolic pressure is 11 mmHg. Left Ventricle E/e' 9 is minimally elevated. Left ventricular chamber dimension is normal. Left ventricular systolic function is normal, estimated at 60-65%. The left ventricular diastolic function is normal. Right Ventricle Right ventricular systolic function is normal and with normal TAPSE 3.6 cm. Right ventricular chamber dimension is normal. Left Atria Left atrial chamber dimension is mildly enlarged. Right Atria Right atrial chamber dimension is normal. Aortic Valve The aortic valve is trileaflet. There is no aortic valve stenosis. There is no aortic valve regurgitation. Pulmonic Valve There is no pulmonic regurgitation. Mitral Valve There is no mitral valve stenosis. There is no mitral valve regurgitation. Tricuspid Valve There is trace tricuspid valve regurgitation. No pulmonary hypertension, estimated pulmonary arterial systolic pressure is 11 mmHg. Pericardium/Pleural There is no pericardial effusion. Inferior Vena Cava Normal inferior vena cava with >50% collapse upon inspiration consistent with normal right atrial pressure, 5 mmHg. Aorta The aortic root size at the sinus of Valsalva is normal. Left Ventricular Outflow Tract Name Value Normal LVOT 2D LVOT Diameter 1.9 cm LVOT Doppler LVOT Peak Velocity 119 cm/s LVOT Peak Gradient 4 mmHg LVOT Mean Gradient 2 mmHg LVOT VTI 34 cm LVOT VTI/AV VTI Ratio 0.9 LVOT Stroke Volume 97 ml Pulmonic Valve Name Value Normal RVOT Doppler RVOT Peak Gradient 3 mmHg PV Doppler
== END 2022-10-22 08:27 | disposition home or self-care (01) ==
LOC: CHSIMG 08:28
PROVIDERS: PCP Family Medicine; Visit Provider Family Medicine
DX: I51.7 Cardiomegaly (principal); I10 Essential (primary) hypertension
CPT/HCPCS: 93306

== ENCOUNTER 2022-12-27 01:07 | Day surgery (SDC) | payer OTHER, MEDICARE, SELFPAY ==
[2022-12-14 13:38] VITALS: BMI 29.2
[2022-12-27 08:34] VITALS: BP 125/96; PULSE 94; RESP 20; TEMP 35.9; O2SAT 97; BMI 29.0
[2022-12-27] MEDS: LACTATED RINGERS 1,000 ML 150 ML IV CONT (08:44)
--- NOTE | 2022-12-27 09:20 | PM.IMHP ---
H&P: HPI History of Present Illness Date/Time: 12/27/22 09:20 Chief Complaint: Anemia, screening colonoscopy Narrative: This is a 52-year-old woman who presents for colonoscopy. Her last colonoscopy was 10 years ago or more. She denies any hematochezia or melena. She was recently to be profoundly anemic and required 4 units of packed red blood cell transfusion. No further GI workup was done at that time. She now presents for colonoscopy. She has not had an EGD recently. She does complain of frequent GERD and possible history of ulcers. Review of Systems Review of Systems: All systems reviewed & are unremarkable except as noted in HPI and below Constitutional: Constitutional: Denies chills, Denies fever(s), Denies headache(s) and Denies weight loss Eyes: Eyes: Denies change in vision ENT: Denies dizziness, Denies headache(s), Denies neck mass and Denies throat swelling Cardiovascular: Cardiovascular: Denies chest pain, Denies lightheadedness and Denies dyspnea Respiratory: Respiratory: Denies cough, Denies dyspnea and Denies wheezing Gastrointestinal: Gastrointestinal: Denies abdominal pain, Denies change in bowel habits, Denies nausea and Denies vomiting Genitourinary: Genitourinary: Denies hematuria and Denies dysuria Musculoskeletal: Musculoskeletal: Reports as per HPI Integumentary/Breasts: Skin/Breast: Reports as per HPI Neurologic: Denies dizziness and Denies headache(s) Allergic/Immunologic: Allergic/Immunologic: Denies throat swelling and Denies wheezing [facility]LY [facility] Past Medical History Medical History Anemia Cigarette nicotine dependence Claudication COPD (chronic obstructive pulmonary disease) Depression DM2 (diabetes mellitus, type 2) NADINE (generalized anxiety disorder) GERD (gastroesophageal reflux disease) Healthcare maintenance Hyperlipidemia Hypertension Neurogenic claudication Overweight Surgical History Surgical History History of cholecystectomy 1992 History of hysterectomy 2006 Family History Family History Mother Diabetes mellitus Family history of arthritis Acute myocardial infarction Heart disease Hypertension Congestive heart failure CAD (coronary artery disease) Father Diabetes mellitus Cerebrovascular accident Family history of arthritis Other Family history of cardiovascular disease Social History Social History Social History: patient lives with her boyfriend Jovanny who will be her surrogate if she is unable to make her own decisions. Patient does have 2 kids and she also stated that she wishes to be a full code at this time. Smoking packs per day: 1 Smoking cigarettes per day: 20.0 Years smoked: 35 Smoking pack-years: 35.00 Smoking status: Current every day smoker Tobacco type: cigarettes Second hand tobacco smoke exposure: Yes Alcohol intake: current Drinks per week: 3 Alcohol use details: socially Substance use: current Substance use type: marijuana Other substance usage details: smokes marijuana Last use: 12/14/22 Lack of Transportation: No Lack of Food: Never True Current Housing: I Have Housing Concerned About Future Housing: No Difficulty Paying Gas/Electric Bills: No Difficulty Paying for Meds: No Currently Unemployed: No Education: High School Diploma/GED Difficulty w/ Childcare or Family Care: No Living arrangements: alone Additional living arrangements comments: Lives with her boyfriend. 2 Children. 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
--- NOTE | 2022-12-27 09:24 | WPDANESEPPF ---
Anes - Initial Pre Proc Eval Procedure: Operation Date: 12/27/22 09:45 Proposed Procedures p Colonoscopy - Guy Triana DO Date/Time: 12/27/22 09:24 Surgeon: Guy Triana DO Pre Op Diagnosis: neoplasm screening, anemia Patient Data Age: 52 Gender: F Height: 1.68 m Weight: 81.6 kg Last Vital Signs Temp 96.7 F L 12/27/22 08:34 Pulse 94 12/27/22 08:34 Resp 20 12/27/22 08:34 BP 125/96 H 12/27/22 08:34 Pulse Ox 97 12/27/22 08:34 O2 Del Method Room Air 12/27/22 08:34 Allergies Allergy/AdvReac Type Severity Reaction Status Date / Time ranitidine Allergy Severe LIPS SWELL Verified 12/14/22 13:35 Penicillins Allergy Unknown Unknown Verified 12/14/22 13:35 bupropion [From Wellbutrin] Allergy Hives Verified 12/14/22 13:35 escitalopram [From Lexapro] Allergy Hives Verified 12/27/22 08:33 Home Medications Medication Instructions Recorded Confirmed Type brimonidine 0.1 % eye drops 1 drop ophthalmic (eye) Q8H 07/20/19 12/14/22 History (Alphagan P) trazodone 50 mg tablet 100 mg PO HS PRN Insomnia 07/20/19 12/14/22 History venlafaxine 150 mg 150 mg PO DAILY 09/05/22 12/14/22 History capsule,extended release 24 hr torsemide 20 mg tablet See Rx Instructions .Route 11/20/22 12/14/22 Rx .COMPLEX #30 tabs omeprazole 40 mg capsule,delayed See Rx Instructions .Route 11/27/22 12/14/22 Rx release .COMPLEX #90 caps ferrous sulfate 325 mg (65 mg See Rx Instructions .Route 12/03/22 12/14/22 Rx iron) tablet .COMPLEX #60 tabs atorvastatin 40 mg tablet See Rx Instructions .Route 12/06/22 12/14/22 Rx .COMPLEX #90 tabs ibuprofen 800 mg tablet See Rx Instructions .Route 12/06/22 12/14/22 Rx .COMPLEX #270 tabs zafirlukast 20 mg tablet See Rx Instructions .Route 09/28/23 10/06/23 Rx .COMPLEX #180 tabs albuterol sulfate 90 mcg/actuation See Rx Instructions .Route 12/25/22 12/27/22 Rx aerosol inhaler .COMPLEX #8.5 ea Patient hx anesthesia problems: none Family hx anesthesia problems: none Results Review: All pre-operative results and documents have been reviewed as part of the pre-operative evaluation. [facility] Past Medical History Medical History Anemia Cigarette nicotine dependence Claudication COPD (chronic obstructive pulmonary disease) Depression DM2 (diabetes mellitus, type 2) NADINE (generalized anxiety disorder) GERD (gastroesophageal reflux disease) Healthcare maintenance Hyperlipidemia Hypertension Neurogenic claudication Overweight Surgical History Surgical History History of cholecystectomy 1993 History of hysterectomy 2006 Family History Family History Mother Diabetes mellitus Family history of arthritis Acute myocardial infarction Heart disease Hypertension Congestive heart failure CAD (coronary artery disease) Father Diabetes mellitus Cerebrovascular accident Family history of arthritis Other Family history of cardiovascular disease Social History Social History Social History: patient lives with her boyfriend Jovanny who will be her surrogate if she is unable to make her own decisions. Patient does have 2 kids and she also stated that she wishes to be a full code at this time. Smoking packs per day: 1 Smoking cigarettes per day: 20.0 Years smoked: 35 Smoking pack-years: 35.00 Smoking status: Current every day smoker Tobacco type: cigarettes Second hand tobacco smoke exposure: Yes Alcohol intake: current Drinks per week: 3 Alcohol use details: socially Substance use: current Substance use type: marijuana Other substance usage details: smokes marijuana Last use: 12/14/22 Lack of Transportation: No Lack of Food: Never True Current Housing: I Have Housing Concerned About Fut
[2022-12-27 09:58] VITALS: BP 125/76; PULSE 75; RESP 15; O2SAT 100
[2022-12-27 10:08] VITALS: BP 131/81; PULSE 70; RESP 20; O2SAT 100
[2022-12-27 10:18] VITALS: BP 141/81; PULSE 71; RESP 16; O2SAT 100
== END 2022-12-27 10:28 | disposition home or self-care (01) ==
PROVIDERS: PCP Family Medicine; Visit Provider Surgery
PROC: 0DJD8ZZ Inspection of Lower Intestinal Tract, Via Natural or Artificial Opening Endoscopic (ICD-10-PCS; CPT 45378; principal; 2022-12-27 09:45)
DX: Z12.11 Encounter for screening for malignant neoplasm of colon (principal); D64.9 Anemia, unspecified; J44.9 Chronic obstructive pulmonary disease, unspecified; E11.9 Type 2 diabetes mellitus without complications; I10 Essential (primary) hypertension; E78.5 Hyperlipidemia, unspecified; K21.9 Gastro-esophageal reflux disease without esophagitis; F41.1 Generalized anxiety disorder; F32.A Depression, unspecified; Z79.51 Long term (current) use of inhaled steroids; F17.210 Nicotine dependence, cigarettes, uncomplicated; F12.90 Cannabis use, unspecified, uncomplicated
CPT/HCPCS: 45378; J2704; J7120

== ENCOUNTER 2023-12-11 13:29 | Outpatient (CLI) | payer OTHER, MEDICARE, SELFPAY ==
--- NOTE | ~2023-12-11 | MM_ITS ---
EXAMINATION: MM screening doc BI w dave HISTORY: Screening TECHNIQUE: Craniocaudal and mediolateral oblique 3-D tomosynthesis images were obtained and synthetic 2-D images were generated. CAD analysis was submitted and interpreted. COMPARISON: 12/20/2020 BREAST PARENCHYMAL COMPOSITION: Not dense: There are scattered areas of fibroglandular density. FINDINGS: There is no evidence of suspicious mass, calcification, or architectural distortion to sugg est malignancy in either breast. There has been no suspicious interval change. IMPRESSION: 1. No mammographic evidence of malignancy. 2. Recommend routine screening mammography in one year. BI-RADS Category 1: Negative Reviewed, dictated and finalized at location B.
== END 2023-12-11 13:30 | disposition home or self-care (01) ==
PROVIDERS: PCP Nurse Practitioner Family; Visit Provider Nurse Practitioner Family
DX: Z12.31 Encounter for screening mammogram for malignant neoplasm of breast (principal)
CPT/HCPCS: 77063; 77067

== ENCOUNTER 2024-11-26 14:00 | Outpatient (CLI) | payer MEDICARE, SELFPAY ==
--- OUTSIDE RECORDS SUMMARY | 2024-11-26 14:03 | XMS_ITS | Clinical Summary ---
Author Organization [facility] Address [address] [place] [address] Care Team Providers Care Transformer Builder Name Role Phone Kuldeep Cuello MD Primary Care Provider [phone] Allergies Active Allergy Reactions Criticality Noted Date Comments Escitalopram Hives Medium 12/02/2018 Penicillins Hives,Stomach upset Medium 12/02/2018 Bupropion Hives Medium 12/02/2018 Medications albuterol HFA (PROVENTIL HFA,VENTOLIN HFA,PROAIR HFA) 90 mcg/actuation inhaler INHALE 1 TO 2 PUFFS BY MOUTH EVERY 4 TO 6 HOURS NEEDED 5 9 Active ALPHAGAN P 0.1 % drops INSTILL 1 DROP INTO BOTH EYES TWICE A DAY DIRECTED 4 9 Active montelukast (SINGULAIR) 10 mg tablet Take 10 mg by mouth daily 1 9 Active lisinopril-hydr oCHLOROthiazide (ZESTORETIC) 20-25 mg per tablet Take 1 tablet by mouth daily 2 9 Active venlafaxine XR (EFFEXOR-XR) 150 mg 24 hr capsule Take 150 mg by mouth daily 3 9 Active omeprazole (PriLOSEC) 40 mg capsule TAKE ONE CAPSULE BY MOUTH ONCE DAILY ONE HOUR PRIOR TO LARGEST MEAL 3 9 Active ibuprofen (ADVIL,MOTRIN) 800 mg tablet Take 800 mg by mouth every 8 (eight) hours as needed 2 9 Active traZODone (DESYREL) 100 mg tablet Take 100 mg by mouth daily 1 9 Active rOPINIRole (REQUIP) 0.25 mg tablet Take 0.25 mg by mouth 3 (three) times a day Active diclofenac sodium (VOLTAREN) 1 % gel Apply 2 g topically 2 (two) times a day 1 Tube 2 9 Active acetaminophen-c odeine (TYLENOL with CODEINE #3) 300-30 mg per tablet TAKE 1-2 TABS EVERY 4-6 HRS PRN PAIN 12 tablet 0 Active Active Problems Problem Noted Date Diagnosed Date Carpal tunnel syndrome of left wrist 03/12/2019 Overview (03/12/2019): Added automatically from request for surgery [id number] Surgical History Surgery Date Site/Laterality Comments HYSTERECTOMY CYST REMOVAL RECONSTRUCTIVE SURGERY [place] Medical History Medical History Date Comments Anemia Anxiety Arthritis Asthma Depression Gastric reflux Emphysema of lung Hypertension Migraines Obesity Pneumonia Allergic rhinitis Peptic ulceration Urinary tract infection Social History Tobacco Use Types Packs/Day Years Used Date Smoking Tobacco: Every Day Smokeless Tobacco: Never Alcohol Use Standard Drinks/Week Comments Defer 0 (1 standard drink = 0.6 oz pur e alcohol) Comments No Sex and Gender Information Value Date Recorded Sex Assigned at Not on file Legal Sex 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 Gender Identity Not on file Sexual Orientation Not on file Obstetrics History Last Filed Vital Signs Vital Sign Reading Time Taken Comments Blood Pressure 105/88 03/31/2019 3:30 PM VOICE INSTRUCTOR Pulse 87 03/31/2019 3:30 PM VOICE INSTRUCTOR Temperature 36.1 C (97 F) 03/31/2019 3:30 PM VOICE INSTRUCTOR Respiratory Rate 13 03/31/2019 3:30 PM VOICE INSTRUCTOR Oxygen Saturation 99% 03/31/2019 3:30 PM VOICE INSTRUCTOR Inhaled Oxygen Concentration - - Weight - - Height - - Body Mass Index - - Plan of Treatment Not on file Insurance [employer]ARE [employer] PPO POS MED[employer] PPO POS Care Teams Transformer Builder Relationship Specialty Start Date End Date Kuldeep Cuello MD [address] [place], [place] [id number] PCP - General Family Medicine 12/15/18
[2024-11-26 14:17] LABS: Hematocrit 40.0 % (35.0-49.0); Hemoglobin 13.6 g/dL (12.0-15.0); Immature Granulocyte Percent A 0.4 % (0.0-0.0); Lymphocytes Absolute Auto 2.29 K/mm3 (1.10-4.50); Mean Corpuscular HGB Conc 34.0 g/dL (32-36); Mean Corpuscular Hemoglobin 32.3 pg (27.0-31.0); Mean Corpuscular Volume 95.0 fL (78.0-102.0); Nucleated Red Blood Cells Absolute Auto 0.00 K/mm3 (0.00-0.00); Nucleated Red Blood Cells Perc 0.0 % (0-0.0); Platelet Count Result 281 K/mm3 (150-420); Red Blood Count 4.21 M/mm3 (4.20-5.40); White Blood Count 9.2 K/mm3 (4.8-10.8)
[2024-11-26 14:35] LABS: Hemoglobin A1C 5.8 % (<5.7)
[2024-11-26 14:55] LABS: Alanine Aminotransferase 25 U/L (6-35); Albumin Level 4.4 g/dL (3.5-5.1); Alkaline Phosphatase 79 U/L (38-126); Anion Gap 8 mmol/L (4-12); Aspartate Amino Transferase 29 U/L (14-36); Bilirubin,Total 0.4 mg/dL (0.2-1.3); Blood Urea Nitrogen 16 mg/dL (7-17); Calcium 9.7 mg/dL (8.4-10.2); Carbon Dioxide 29 mmol/L (22-30); Chloride 102 mmol/L (98-107); Cholesterol 156 mg/dL (0-200); Estimated Glomerular Filt Rate 53; Glucose 112 mg/dL (65-110); HDL Direct 58 mg/dL; Iron 89 ug/dL (37-170); Osmolality Calculated 290 mOsm/kg (285-295); Potassium 4.4 mmol/L (3.4-5.0); Sodium 139 mmol/L (137-145); Total Protein 7.3 g/dL (6.3-8.2); Triglycerides 159 mg/dL (<150)
[2024-11-26 15:03] LABS: Percent Iron Saturation 35 % (20-50)
== END 2024-11-26 14:01 | disposition home or self-care (01) ==
PROVIDERS: PCP Family Medicine; Visit Provider Nurse Practitioner Family
DX: E11.9 Type 2 diabetes mellitus without complications (principal); I10 Essential (primary) hypertension; D64.9 Anemia, unspecified; E78.2 Mixed hyperlipidemia; Z13.6 Encounter for screening for cardiovascular disorders; Z79.899 Other long term (current) drug therapy
CPT/HCPCS: 36415; 80053; 80061; 82306; 83036; 83540; 83550; 85025

== ENCOUNTER 2024-12-01 13:08 | Outpatient (RCR) | payer MEDICARE, SELFPAY ==
--- NOTE | 2024-12-01 14:37 | PTOPEVAL1 ---
Assessment and note entered by Estelle Angeles DPT Evaluation Information Assessment Status Evaluation Diagnosis L shoulder pain ICD-10 Condition Codes (PT) Pain in left shoulder M25.512 Onset 11/26/24 Subjective Information Patient reports in May 2022 she abruptly moved and felt a pop in her L shoulder. She reports that her shoulder has bothered her ever since and has not gotten better. She reports that she has not had any imaging. She reports she worked following onset. She works in home health care. Patient reports that she has difficulty with gripping, relaxing her arm while sitting, reaching overhead and donning her bra. She reports that voltaren gel has helped with pain in the past. She reports no follow up with MD at this time. Reported Pain Level Pain Score 5: Self Report Assessment PT Clinical Summary Ms. Zaman is a 54 year old female who presents to PT with L shoulder pain. She demonstrates decreased L shoulder active ROM, decreased L shoulder strength and increased tightness at L upper trap impairing her ability to reach into cabinets, donning her bra and sitting for prolonged periods of time. She would benefit from skilled PT to address impairments and return to PLOF. Plan of Care Interventions Electrical Stimulation,Hot Pack/Cold Pack,Manual Therapy,Neuro Re-education,Patient/Caregiver Education,Therapeutic Activities,Therapeutic Exercise PT Services Indicated Yes Treatment Frequency and 2x weekly for 10 visits Duration These treatments will address the objective and functional deficits as defined above. The patient will be advanced safely and appropriately in order for the patient to progress towards his/her prior level of function. Additional exercises will be introduced and as well as a comprehensive home exercise program upon discharge, if needed, ?to ensure carryover of functional gains achieved in the clinic. This treatment plan has been reviewed and agreement upon by the patient.
--- NOTE | 2024-12-17 13:18 | PCPTNOTE ---
Patient called & cancelled scheduled appointment this date due to work.
--- NOTE | 2024-12-31 13:50 | OPREHPOC ---
Outpatient Therapy Plan of Care This is a Multidisciplinary Plan of Care that may contain components documented by all disciplines (PT, OT, and ST.) PT Problem 1 PT Problem #1 Knowledge Deficit PT Goal 1 Goal / Goal Update patient to demonstrate independence with HEP Target Visit 5 Progress Met PT Problem 2 PT Problem #2 Pain PT Goal 1 Goal / Goal Update 1. patient to report highest pain at 2/10 2. patient to report ability to sleep with no disturbance due to L shoulder pain Target Visit 10 Progress Not Met PT Goal 1 Goal / Goal Update 1. patient to demonstrate 160 deg of L shoulder flexion to reach into cabinets 2. patient to demonstrate IR reach to the bra line to improve dressing tasks Target Visit 10 Progress Not Met PT Problem 4 PT Problem #4 Impaired Functional Mobility PT Goal 1 Goal / Goal Update 1. Patient to demonstrate 20% improvement on QuickDASH 2. Patient to report ability to complete house hold tasks at PLOF Target Visit 10 Progress Not Met
--- NOTE | 2024-12-31 13:50 | PTOPDC ---
Assessment and note entered by Ting Waller, PT Evaluation Information Assessment Status Discharge Diagnosis L shoulder pain ICD-10 Condition Codes (PT) Pain in left shoulder M25.512 Onset 11/26/24 Subjective Information Pt reports feeling like her shoulder has been getting worse with PT. She reports continued difficulty with reaching overhead, donning her bra , gripping and lifting. She also notes continued worsening pain when letting her arm hang at rest. She still cannot sleep through the night and her pain is currently radiating from her neck down to both arms and she is most painful on her L side on top of her shoulder. Reported Pain Level Pain Score 5: Self Report Pain Score 8: Self Report Assessment PT Clinical Summary Mrs. Zaman has attended 8 skilled PT visits addressing L shoulder pain. Since starting therapy her pain has worsened and today she was not able to tolerate more than 10 minutes in supine. Pain continued to worsen with reassessment of objective measures and with exercise. Per reassessment pt's symptoms appear to originating and/or complicated by possible cervical pathology as evidenced by positive foraminal compression and distraction testing. Pt's L shoulder AROM has also declined and she has not met any therapeutic goals. Due to her lack of progress and worsening presentation, pt is not a good candidate for skilled PT at this time. It is recommended she return to MD for further assessment and imaging of the cervical spine and shoulder. Plan of Care PT Services Indicated No
== END 2024-12-31 14:47 | disposition home or self-care (01) ==
LOC: CHSPT 13:08
PROVIDERS: PCP Nurse Practitioner Family; Visit Provider Nurse Practitioner Family
DX: M25.512 Pain in left shoulder (principal)
CPT/HCPCS: 97014; 97110; 97112; 97140; 97161; G0283

== ENCOUNTER 2025-01-09 06:58 | Outpatient (CLI) | payer MEDICARE, SELFPAY ==
--- NOTE | ~2025-01-09 | MR_ITS ---
EXAMINATION: MR shoulder LT wo con DATE: 01/09/2025 07:52 INDICATION: Left shoulder pain. TECHNIQUE: Magnetic resonance imaging (MRI) of the left shoulder was performed without intravenous contrast. Sequences included axial PD-weighted FS FSE, coronal oblique PD-weighted FS FSE and T2-weighted FS FSE, and sagittal oblique T2-weighted FS FSE and T1-weighted FSE. COMPARISON: Left shoulder radiographs 08/10/2014 FINDINGS: Coracoacromial arch: The acromion undersurface is curved in morphology (type II). There is moderate acromioclavicular joint osteoarthritis including inferiorly directed osteophytes. There is moderate subacromial/subdeltoid bursitis. Rotator cuff: There is an articular sided partial thickness tear of supraspinatus and infraspinatus tendons measuring 2.2 cm anterior to posterior by 2.9 cm exophytic distal by up to 80% tendon thickness. Teres minor tendon is normal. Subscapularis tendon is normal. There is mild fatty atrophy of the supraspinatus, infraspinatus, teres minor, and subscapularis muscle bellies. Biceps tendon and glenoid labrum: Biceps tendon is in bicipital groove. Intra-articular biceps tendon is normal. There is degeneration of the superior labrum without well-defined tear. Fluid: There is a small glenohumeral joint effusion. Bones/cartilage: There is partial-thickness cartilage loss of glenoid and humeral head. IMPRESSION: 1. Articular-sided, partial-thickness tear of supraspinatus and infraspinatus tendons. 2. Mild glenohumeral joint chondrosis. 3. Moderate acromioclavicular joint osteoarthritis. 4. Small glenohumeral joint effusion. 5. Moderate subacromial/subdeltoid bursitis. Reviewed, dictated and finalized at location E. IMPRESSION: 1. Articular-sided, partial-thickness tear of supraspinatus and infraspinatus t endons. 2. Mild glenohumeral joint chondrosis. 3. Moderate acromioclavicular joint osteoarthritis. 4. Small glenohumeral joint effusion. 5. Moderate subacromial/subdeltoid bursitis.
--- NOTE | ~2025-01-09 | MR_ITS ---
EXAMINATION: MR cervical spine wo con DATE: 01/09/2025 07:52 INDICATION: Neck pain. Left shoulder pain. TECHNIQUE: Magnetic resonance imaging (MRI) of the cervical spine was performed without intravenous contrast. COMPARISON: Cervical spine MRI 10/08/2018 FINDINGS: There is 3 degrees levocurvature of cervicothoracic spine. There is mild kyphosis of cervical spine. Vertebral body heights are normal. There is mildly decreased disc height at C3-C4, moderately decreased disc height at C4- C5, and severely decreased disc height at C5-C6 and C6-C7. The spinal cord signal intensity is normal. The following disc levels are specifically discussed: C2-C3: There is a central protrusion. There is no uncovertebral joint osteoarthritis. There is moderate bilateral facet joint osteoarthritis. There is no neural foraminal stenosis. There is no central canal stenosis. C3-C4: There is a central protrusion. There is mild bilateral uncovertebral joint osteoarthritis. There is mild right and severe left facet joint osteoarthritis. There is mild bilateral neural foraminal stenosis. There is no central canal stenosis. C4-C5: The disc is bulging. There is severe bilateral uncovertebral joint osteoarthritis. There is mild right and severe left facet joint osteoarthritis. There is mild right and moderate left neural foraminal stenosis. There is mild central canal stenosis. C5-C6: The disc is bulging. There is severe bilateral uncovertebral joint osteoarthritis. There is mild bilateral facet joint osteoarthritis. There is severe right and moderate left neural foraminal stenosis. There is moderate central canal stenosis. C6-C7: The disc is bulging. There is severe bilateral uncovertebral joint osteoarthritis. There is mild bilateral facet joint osteoarthritis. There is severe right and moderate left neural foraminal stenosis. There is moderate central canal stenosis. C7-T1: The disc does not extend beyond the endplate margin. There is no uncovertebral joint osteoarthritis. There is severe bilateral facet joint osteoarthritis. There is no neural foraminal stenosis. There is no central canal stenosis. IMPRESSION: 1. Severe cervical spondylosis, mildly worsened from 10/08/2018. Reviewed, dictated and finalized at location E.
== END 2025-01-09 06:59 | disposition home or self-care (01) ==
LOC: CHSIMG 06:59
PROVIDERS: PCP Nurse Practitioner Family; Visit Provider Nurse Practitioner Family
DX: R20.2 Paresthesia of skin (principal); M25.512 Pain in left shoulder; M25.612 Stiffness of left shoulder, not elsewhere classified; M54.2 Cervicalgia; S46.812A Strain of other muscles, fascia and tendons at shoulder and upper arm level, left arm, initial encounter; M67.812 Other specified disorders of synovium, left shoulder; M19.012 Primary osteoarthritis, left shoulder; M25.412 Effusion, left shoulder; M75.52 Bursitis of left shoulder; M43.02 Spondylolysis, cervical region
CPT/HCPCS: 72141; 73221

== ENCOUNTER 2025-02-16 07:03 | Day surgery (SDC) | payer MEDICARE, SELFPAY ==
[2025-02-09 10:11] VITALS: BMI 31.1
--- NOTE | ~2025-02-16 | XR_ITS ---
EXAM/PROCEDURE: XR fluoroscopy no charge HISTORY: RIGHTWARD C6-7 INTERLAMINAR EPIDURAL STEROID INJ COMPARISON: None available. TECHNIQUE: Fluoroscopic spot images for pain service. Fluoroscopy time: 64.9 seconds Dose: 4.39 mGy IMPRESSION: Fluoroscopic guided imaging. No radiologist present. See also procedure/operative notes for complete evaluation. Reviewed, dictated and finalized at location A. ALL MACHINE REPAIRER IMPRESSION: Fluoroscopic guided imaging. No radiologist present. See also proce dure/operative notes for complete evaluation.
[2025-02-16 07:21] VITALS: BP 144/86; PULSE 84; RESP 16; TEMP 36.4; O2SAT 98
--- NOTE | 2025-02-16 08:03 | WPDHPUPDATE1 ---
History and Physical Update Update Date/Time: 02/16/25 08:03 History and Physical has been reviewed, including an updated exam of the patient. There are NO changes in the patient's condition. Risks, benefits, and alternatives have been discussed and questions answered. Patient agrees to proceed with procedure.
--- NOTE | 2025-02-16 08:04 | P.OP_ITS ---
Procedure Note - Detailed Date of Procedure 02/16/25 Pre-op Diagnosis Cervical Radiculopathy and Stenosis Post-op Diagnosis Same Procedure Performed Rightward Cervical Interlaminar Epidural Steroid Injection at C6-7 under Fluoroscopic Guidance and with Contrast Control. Surgeon Matt Philip MD Anesthesia Local Description of Procedure INFORMED CONSENT: Risks, benefits and alternatives to the procedure were discussed in detail with the patient who expressed explicit understanding and consent to proceed. Patient was informed verbally and in written form regarding the risks associated with the procedure including the low risk of serious infection, bleeding/bruising, allergic reaction, nerve or organ injury, paralysis, procedural site pain or discomfort, worsening pain and/or mobility, failure to treat and/or disfigurement. The patient expressed explicit understanding and consent to proceed. All materials required for the procedure were available prior to procedure start. Site and side was marked prior to procedure and confirmed in the presence of the patient. PROCEDURE IN DETAIL: The patient was brought to the procedural suite and placed in the prone position. Patient's head was positioned and stabilized with a ProneView pillow or equivalent. Patient was made comfortable with use of pillows under the chest, hips and ankles. Skin overlying the injection site was prepared broadly with ChloraPrep applicator and draped in a sterile manner. Aseptic technique was employed throughout. The endplates of the vertebral body at the site of interest were aligned in the AP view. Slight caudad tilt and ipsilateral oblique angulation was utilized to optimize visualization of the targeted posterior intervertebral foramen at C6-7. Local anesthesia was established by infiltration with approximately 5 mL of 2% lidocaine via a 1-1/2 inch 27-gauge needle. A 20-gauge 4-inch Tuohy epidural needle was advanced intermittently until appropriate loss of resistance to air was identified via plastic loss of resistance syringe. Lateral view was used to confirm the ap propriate positioning of the needle tip within the posterior epidural space. In the AP view, 2.0 mL of Omnipaque 300 contrast medium was injected after negative aspiration for CSF, blood or other bodily fluid, showing appropriate epidural spread of contrast without evidence of intravascular or intrathecal placement. After negative repeat aspiration for CSF, blood or other bodily fluid, A 4 mL solution containing 10 mg of dexamethasone in sterile PF Normal Saline was injected after negative repeat aspiration. Appropriate spread of the injectate was confirmed with washout of previously injected contrast. No parasthesias were elicited. Needle was removed completely intact without difficulty. Images were saved and documented in the patient chart. Patient's skin was cleansed and sterile bandage applied. The patient tolerated the procedure well. The patient was transported to the recovery area in stable condition where they were observed for an appropriate amount of time prior to discharge, without evidence of complication. The patient was instructed to avoid excessive activity for the next 48 hours, including overhead work, reaching or extended device/computer usage. Showers only for 48 hours. They were instructed not to drive or operate heavy machinery for 24 hours. They are to monitor for severe headaches, fevers, chills, night sweats, erythema/swelling at the site or any other signs of infection, bleeding/bruising, bowel or bladder changes as well as new pain, weakness or numbness in the upper or lower extremity. Should they notice these changes, they are instructed to call our office immediately or report directly to the nearest Emergency Department if no answer or if after posted office hours. CONTRAST WASTED: 28mL Omnipaque 300. Complications No immediate complications Condition Stable Disposition Same day [facility] Billing Surgery - Charge Forward: Surgery Billing
[2025-02-16 08:14] VITALS: BP 165/94; PULSE 76; RESP 14; O2SAT 96
[2025-02-16] MEDS: dexAMETHasone SOD PHOS INJ 10 MG/ML 1 ML VIAL IV PUSH (08:15)
[2025-02-16 08:20] VITALS: BP 165/100; PULSE 80; RESP 19; O2SAT 96
[2025-02-16 08:30] VITALS: BP 157/95; PULSE 79; RESP 15; O2SAT 97
== END 2025-02-16 08:36 | disposition home or self-care (01) ==
PROVIDERS: PCP Family Medicine; Visit Provider Anesthesiology Pain Medicine
PROC: (CPT 62321; principal; 2025-02-16 08:05)
DX: M48.02 Spinal stenosis, cervical region (principal); M54.12 Radiculopathy, cervical region
CPT/HCPCS: 62321; 99199

== ENCOUNTER 2025-02-18 14:32 | Outpatient (CLI) | payer MEDICARE, SELFPAY ==
--- NOTE | ~2025-02-18 | MM_ITS ---
EXAMINATION: MM screening doc BI w dave HISTORY: Screening. TECHNIQUE: Craniocaudal and mediolateral oblique 3-D tomosynthesis images were obtained and synthetic 2-D images were generated. CAD analysis was submitted and interpreted. COMPARISON: 2023 and 2020. BREAST PARENCHYMAL COMPOSITION: Not Dense: The breasts are almost entirely fatty FINDINGS: No suspicious masses are seen. There are no suspicious calcifications. No unexplained architectural distortion is seen. There are no skin or nipple abnormalities identified. There is no adenopathy seen on the images submitted. IMPRESSION: No mammographic evidence to suggest malignancy is seen. The patient may return to screening mammography as per ACR guidelines. BI-RADS 1 - Negative. Reviewed, dictated and finalized at location C. OR DATA QUALITY ANALYST
== END 2025-02-18 14:33 | disposition home or self-care (01) ==
PROVIDERS: PCP Nurse Practitioner Family; Visit Provider Nurse Practitioner Family
DX: Z12.31 Encounter for screening mammogram for malignant neoplasm of breast (principal)
CPT/HCPCS: 77063; 77067